=== PATIENT | male | born 1950 | race Caucasian/White ===

== ENCOUNTER → 2016-09-27 | Day surgery (SDC) | payer MEDICARE, BC ==
[~2016-09-27] MED LIST: ADVIL200 M2 PO; ATORVASTATIN CA10 MG PO; B-COMPLEX1 TAB PO; BACLOFEN10 MG PO; BACLOFEN20 M1 PO; CALCIUM + D 6001 TA1 PO; COLACE PO; DETROL PO; DITROPAN5 MG PO; FISH OIL SOFTGE1 CA1 PO; FLAX SEED OIL1000 M1 PO; FLOMAX0.4 M1 PO; HYDROCODON-ACE1 EAC5 PO; KLONOPIN PO; KRILL OIL 1,001 EACH PO; L-ARGININE500 MG PO; MILK THISTLE200 MG PO; MIRALAX; MULTIVITAMIN1 UDCAP PO; NIACIN500 M1 PO; NORCO 5/325 TAB1 TAB PO; OXYCODON HCL-1 UDTAB PO; PANTOPRAZOLE SO40 MG PO; POTASSIUM GLUCO99 MG PO; PRILOSEC PO; RAPAFLO4 MG PO; RAPAFLO8 MG PO; ROBAXIN PO; ROBAXIN500 MG PO; SERTRALINE HCL50 M1 PO; VITAMIN C500 M1 PO; VITAMIN D1000 UNI1 PO; VITAMIN E400 UNI2 PO; ZINC SULFATE PO; [UNRECOGNIZED DRUG - OTHER] PO; [UNRECOGNIZED DRUG - OTHER] PO
--- NOTE | ~2016-09-27 | OR ---
Unit #: [id number] #: [id number] Patient: ERINN PATTERSON SR [id number] [address] [address] [id number] O MR#: [id number] NAME: ERINN PATTERSON SR ROOM: Date of Procedure: 09/27/2016 Admission Date: 09/27/2016 Surgeon: Kleber Hunt M.D. : 1950 Attending Physician: Kleber Hunt M.D. Referring Physician: Kleber Hunt M.D. Primary Care Physician: Erinn Fleming M.D. OPERATIVE REPORT PREOPERATIVE DIAGNOSES 1. Back pain. 2. Radiculopathy. 3. Degenerative lumbar disk disease with myelopathy. POSTOPERATIVE DIAGNOSES 1. Back pain. 2. Radiculopathy. 3. Degenerative lumbar disk disease with myelopathy. PROCEDURE PERFORMED Lumbar epidural steroid injection with intravenous sedation and fluoroscopic guidance for needle localization. INDICATIONS FOR PROCEDURE The patient is a 66-year-old male with return of back and left lower extremity pain due to nonsurgical degenerative disk disease. He is treated medically with p.r.n. epidural steroid injections using a series of two, does fairly well from for about 6 months. Last injections did well for 5 months. He is not sure why it is back and why it started hurting bit earlier. However based on history, pathology, symptomatology, and prior response, we are going to proceed with a repeat epidural steroid injection today. DESCRIPTION OF PROCEDURE The patient was placed in a seated position. Standard monitors were applied. 2 mg of Versed were given for sedation and anxiolysis, which were adequate. Vital signs remained stable. Sterile prep and drape then of the lumbar area was performed. The skin at the L4-L5 level was localized with 1% lidocaine. An 18-gauge Brittmore Grouptead needle was then advanced via loss of resistance technique and fluoroscopic guidance in toward the epidural space. After confirming proper positioning with fluoroscopy and radiographic contrast, 80 mg of Depo-Medrol and 4 mL of 0.125% bupivacaine were deposited. The patient tolerated the procedure otherwise well and was discharged to the recovery room in stable condition. Dictated by... Kleber Hunt M.D. LHP/modl Unit #: [id number] #: [id number] Patient: ERINN PATTERSON SR TD: 09/28/2016 01:34 JOB #: [id number] OPERATIVE REPORT Page 1 of 1 X Kleber Hunt MD X PROCEDURE OPERATIVE NOTE
== END | disposition home or self-care (01) ==
LOC: CCSC 09:28
DX: M51.06 Intervertebral disc disorders with myelopathy, lumbar region (principal); M51.16 Intervertebral disc disorders with radiculopathy, lumbar region; K21.9 Gastro-esophageal reflux disease without esophagitis
CPT/HCPCS: J1040; J2250

== ENCOUNTER → 2016-10-04 | Day surgery (SDC) | payer MEDICARE, BC ==
--- NOTE | ~2016-10-04 | OR ---
Unit #: [id number] #: [id number] Patient: RAMIREZ PTATERSON SR [id number] [address] [address] [id number] O MR#: [id number] NAME: RAMIREZ PATTERSON SR ROOM: Date of Procedure: 10/04/2016 Admission Date: 10/04/2016 Surgeon: Kleber Hunt M.D. : 1950 Attending Physician: Kleber Hunt M.D. Referring Physician: Kleber Hunt M.D. Primary Care Physician: Ramirez Fleming M.D. OPERATIVE REPORT PREOPERATIVE DIAGNOSES Back pain, radiculopathy, degenerative disk disease. POSTOPERATIVE DIAGNOSES Back pain, radiculopathy, degenerative disk disease. PROCEDURE PERFORMED Lumbar epidural steroid injection with intravenous sedation and fluoroscopic guidance for needle localization. INDICATIONS FOR PROCEDURE The patient is a 66-year-old male with return of back and left lower extremity pain due to nonsurgical degenerative disk disease. He was generally treated with 2 epidural steroid injections every 6 months, which given a very good improvement of his symptom complex. Recent injection about a week ago resulted in typical improvement he gets after the first injection. He is not back to the prior baseline where he is able to achieve, so proceed with a second injection today. DESCRIPTION OF PROCEDURE The patient was placed in the seated position. Standard monitors were applied. 2 mg of Versed were given for sedation and anxiolysis, which were adequate. Vital signs remained stable. Sterile prep and drape then of the lumbar area was performed. The skin at the L5-S1 level was localized with 1% lidocaine. An 18-gauge [employer] needle was then advanced via loss of resistance technique and fluoroscopic guidance in toward the epidural space. After confirming proper positioning with fluoroscopy and radiographic contrast, 80 mg of Depo-Medrol and 4 mL of 0.125% bupivacaine were deposited. The patient tolerated the procedure otherwise well and was discharged to the recovery room in stable condition. Dictated by... Trciia SolisP/alisl TD: 11/01/2016 22:31 JOB #: [id number] Unit #: [id number] #: [id number] Patient: RAMIREZ PATTERSON SR OPERATIVE REPORT Page 1 of 1 X Kleber Hunt MD X PROCEDURE OPERATIVE NOTE
== END | disposition home or self-care (01) ==
LOC: CCSC 11:05
DX: M51.16 Intervertebral disc disorders with radiculopathy, lumbar region (principal); K21.9 Gastro-esophageal reflux disease without esophagitis; F41.9 Anxiety disorder, unspecified
CPT/HCPCS: J1040; J2250